=== PATIENT | female | born 1985 | race Caucasian/White ===

== ENCOUNTER 2016-07-13 15:12 | Emergency (ER) | payer OTHER ==
[~2016-07-13] VITALS: Wt 113.4 kg
== END 2016-07-13 16:22 | disposition home or self-care (01) ==
LOC: ED 15:12
DX: O9A.213 Injury, poisoning and certain other consequences of external causes complicating pregnancy, third trimester (principal); S60.221A Contusion of right hand, initial encounter; Z88.0 Allergy status to penicillin; Z3A.28 28 weeks gestation of pregnancy; Y08.89XA Assault by other specified means, initial encounter; Y93.89 Activity, other specified; Y92.89 Other specified places as the place of occurrence of the external cause; Y99.9 Unspecified external cause status